=== PATIENT | female | born 1930 | race Caucasian/White ===

== ENCOUNTER 2016-09-12 09:26 | Emergency (ER) | payer OTHER, MEDICARE ==
[~2016-09-12] VITALS: Ht 162.6 cm; Wt 63.5 kg
[~2016-09-12 09:26] MED LIST: ANASTROZOLE1 M1 PO; FLOMAX0.4 M1 PO; IBUPROFEN600 M1 PO; PERCOCET 5-3251 EACH PO; ZOFRAN ODT4 MG SL
[2016-09-12 09:41] VITALS: BP 155/88
--- NOTE | 2016-09-12 10:17 | ED MVC/FALL/TRAUMA COMPLAINT ---
History of Present Illness General Chief Complaint: Fall Stated Complaint: NECK PAIN S/P FALL 2 DAYS AGO, +HEADSTRIKE, -LOC Source: patient Exam Limitations: no limitations Vital Signs & Intake/Output Vital Signs & Intake/Output Vital Signs Date Time Temp Pulse Resp B/P B/P Pulse O2 O2 Flow FiO2 Mean Ox Delivery Rate 09/12 0941 98.2 66 16 155/88 99 Room Air Allergies Coded Allergies: poison chuy extract (Intermediate, RASH 01/05/16) Reconcile Medications Anastrozole 1 MG TABLET 1 MG PO DAILY BREAST CANCER (Reported) Ibuprofen 600 MG TABLET 1 TAB PO Q6 PRN PAIN with food Oxycodone HCl/Acetaminophen (Percocet 5-325 MG Tablet) 1 EACH TABLET 1 TAB PO Q4-6 PRN BREAKTHROUGH PAIN Tamsulosin HCl (Flomax) 0.4 MG CAP.ER.24H 1 CAP PO DAILY KIDNEY STONE Tylenol With Codeine (Tylenol With Codeine #3 Tablet) 300 MG-30 MG TABLET 1 TAB PO BIDP PRN PAIN Triage Note: PT TO ED STATING SHE WAS WEEDING HER GARDEN 2 DAYS AGO AND FELL OFF A CRATE AND HIT HER HEAD ON CONCRETE, DENIES ANY LOC. DENIES ANY BLOOD THINNERS. DENIES ANY VISUAL CHANGES SINCE INCIDENT, DENIES ANY HEADACHE. IS C/O PAIN TO HER NECK ON THE LEFT SIDE, USED A PAIN PATCH YESTERDAY WITH RELIEF. Triage Nurses Notes Reviewed? yes Onset: Gradual Duration: getting worse Timing: recent history Severity: severe Severity Numbers: 7 Method of Injury: direct blow, fall Loss of Consciousness: no loss of consciousness HPI: Patient is an 86-year-old female who presents emergency room with for concerns that 2 days ago while patient was trying to pull weeds in her garden while sitting on a stool that we had broke patient subsequently fell to the right side of her body and struck the right side of her head and face to the cement. Patient denies any blood thinner and denies any loss of consciousness. Patient does admit to bruising to the head and eye region however denies any pain. Patient states that that evening she developed generalized neck pain which she took yesterday Aleve with relief however when patient woke up today the neck stiffness had significantly worsened. Patient denies any headache blurred vision upper extremity paresthesia weakness or pain denies any nausea or vomiting. Patient did not take any medications prior to arrival (CRESCENCIO DE LA TORRE) Past History Travel History Traveled to [place] past 21 day No Medical History Any Pertinent Medical History? 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 No (CRESCENCIO DE LA TORRE) Review of Systems Review of Systems Constitutional: Reports: no symptoms. Eyes: Reports: no symptoms. Ears, Nose, Throat, Mouth: Reports: no symptoms. Respiratory: Reports: no symptoms. Cardiovascular: Reports: no symptoms. Gastrointestinal/Abdominal: Reports: no symptoms. Genitourinary: Reports: no symptoms. Musculoskeletal: Reports: see HPI, muscle pain, muscle stiffness, neck pain. Skin: Reports: see HPI. Neurological/Psychological: Reports: no symptoms. All Other Systems: Reviewed and Negative (CRESCENCIO DE LA TORRE) Physical Exam Physical Exam General Appearance: no apparent distress, alert, comfortable Skin: intact Comments: Well-developed well-nourished person in no acute distress HEENT: Normal EENT exam, extraocular motion intact, no nystagmus. Pupils equally round and reactive to light and accommodation. Nose is atraumatic. External auditory canal and Tympanic membranes clear. Pharynx normal. No swelling or edema. Neck: Normal inspection left lateral paracervical muscular point tenderness noted mild central spinous tenderness noted, decreased active range of motion noted Back: Nontender, no CVA tenderness. No central spinous tenderness Cardiovascular: Regular rate and rhythms no murmurs rubs or gallops, normal JVP Respiratory: Chest nontender. No respiratory distress.breath sounds clear to auscultation bilaterally Abdomen: Soft, nontender nondistended, no appreciable organomegaly. Normal bowel sounds. No ascites Extremity: No edema, no calf tenderness to palpation, normal and equal pulses. Bilateral upper extremity myotomes dermatomes DTRs intact Neuro: Alert oriented x3, motor sensory normal, cranial nerves II through XII grossly intact. Skin: No appreciable rash on exposed skin, skin is warm and dry. Psych: Mood and affect is normal, memory and judgment is normal. Diagram Head: 1) ecchymosis noted 2) Ecchymosis noted no step-off deformity nontender Core Measures ACS in differential dx? No Severe Sepsis Present: No Septic Shock Present: No (ZOE OLEARY,CRESCENCIO) Progress Differential Diagnosis: aoritic dissection, abd injury, C/T/L spine injury, ext injury, ICH, pelvis injury, pnemothorax, spinal cord injury Plan of Care: Orders Procedure Date/time Status CT ORBITS WO IV CONTRAST 09/[address] NECK WO IV CONTRAST 09/[address] HEAD WO IV CONTRAST 09/12 1017 Active Patient currently resting comfortably no apparent distress CT scans of patient's point tenderness in trauma was unremarkable for acute process. I reviewed the scans with patient. Patient was strongly advised to follow-up with discharge instructions the plan and they will comply. Normal steady gait on discharge Discussed disposition and plan with Dr. Hugo who agrees (ZOE OLEARY,CRESCENCIO) Diagnostic Imaging: Viewed by Me: CT Scan. Radiology Impression: no acute abnormality Comments: PATIENT: THIAGO HARRELL PRESENT AGE: 86 PATIENT ACCOUNT NO: [id number] : 31 LOCATION: [facility] ORDERING PHYSICIAN: CRESCENCIO OLEARY SERVICE DATE: 09/12/16 EXAM TYPE: CAT - CT CERV SPINE WO IV CONTRAST; CT HEAD WO IV CONTRAST; CT ORBITS WO IV CONTRAST EXAMINATION: CT HEAD WITHOUT CONTRAST. CT ORBITS WITHOUT CONTRAST. CT CERVICAL SPINE WITHOUT CONTRAST. CLINICAL INFORMATION: Status post fall. Right-sided head and right orbit trauma. Neck pain. COMPARISON: None TECHNIQUE: Multidetector volumetric CT imaging of the head, orbits and cervical spine are acquired without intravenous contrast administration. Postprocessing is performed at a dedicated workstation. Multiplanar reformatted images are submitted. DLP: 1051.64 mGy-cm. FINDINGS: CT HEAD : There is no evidence of acute intracranial hemorrhage, midline shift or mass effect. Etienne to white matter differentiation is well preserved. No acute territorial infarction. Bilateral periventricular white matter patchy low-attenuation changes are noted reflecting sequela of chronic microangiopathy. No abnormal extra-axial fluid collection. There is mild global volume loss. The ventricles and sulci are normal in size for patient's age. The osseous calvarium is intact. An ill-defined focus of sclerosis measuring approximately 1.5 cm in transverse dimension is noted in the right anterior frontal calvarium in the parasagittal location (series 4 image 15), suspicious for metastatic lesion in this patient with personal history of breast cancer. The visualized paranasal sinuses and mastoid air cells are well-aerated except for opacification of few of the right ethmoid air cells. Minimal calvarial soft tissue swelling is noted over the right lateral frontal and temporal region and right anterolateral periorbital region. CT ORBIT: There is no evidence of fracture of the orbital corona. The globes are intact. Patient is status post bilateral lens extraction. The retrobulbar fat, optic nerves, an extraocular muscles appear unremarkable. CT cervical spine: The vertebral body heights are maintained. There is minimal anterior subluxation of C4 over C5. There is moderate to severe narrowing of the C5-C6 and C6-C7 disc spaces. The posterior elements are intact and in normal alignment. No evidence of tight central canal or neural foraminal stenosis. Atlantoaxial and atlantooccipital alignments are normal. Degenerative changes are noted at the atlantoaxial articulation. Facet arthropathy is noted on the left, at C4-C5. There is no evidence of prevertebral soft tissue swelling. Paraspinous soft tissues are unremarkable. The thyroid gland is unremarkable. 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 IMPRESSION: 1. No evidence of acute intracranial abnormality. Specifically there is no evidence of acute intracranial hemorrhage or acute territorial infarction. 2. 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 3. Very mild calvarial soft tissue swelling over the right frontotemporal region and periorbital region. 4. No evidence of orbital fracture. The globes are intact. 5. A stable ill-defined sclerotic focus in the right anterior frontal calvarium in the parasagittal location is suspicious for metastatic lesion. 6. No evidence of acute fracture or traumatic subluxation in the cervical spine. DICTATED BY: OK CARRANZA,STACY DATE/TIME DICTATED:09/12/161049 [employer] CRAFTS TEACHER:TERESA DATE/TIME TRANSCRIBED:09/12/161049 (CRESCENCIO DE LA TORRE) Departure Departure Disposition: HOME OR SELF CARE Condition: Stable Clinical Impression Primary Impression: Neck strain Secondary Impressions: Contusion of face, Fall, Minor head injury Referrals: PATIENT HAS NO PRIMARY CARE DR (PCP/Family) Additional Instructions: As discussed begin icing the area directly 20 minutes every 2 hours. Continue [id number] Aleve as directed for pain and inflammation and begin the prescription of Tylenol with codeine for breakthrough pain relief. Please follow up and establish a primary care doctor with [facility] practice this week for further evaluation treatment. If symptoms worsen return to emergency room. Patient is waiting at [facility] pharmacy Departure Forms: Customer Survey General Discharge Information Prescriptions: Current Visit Scripts Tylenol With Codeine (Tylenol With Codeine #3 Tablet) 1 TAB PO BIDP PRN PAIN #10 TAB (CRESCENCIO DE LA TORRE) PA/HIGH SPEED WARPER TENDER Co-Sign Statement Statement: ED Attending supervision documentation- [X] I saw and evaluated the patient. I have also reviewed all the pertinent lab results and diagnostic results. I agree with the findings and the plan of care as documented in the PA's/HIGH SPEED WARPER TENDER's documentation. [X] I have reviewed the ED Record and agree with the PA's/HIGH SPEED WARPER TENDER's documentation. [] Additions or exceptions (if any) to the PAs/HIGH SPEED WARPER TENDER's note and plan are summarized below: [] (ALEXIA CARRANZA,GABRIEL Bello)
--- NOTE | 2016-09-12 11:25 | CT SCAN REPORT ---
EXAMINATION: CT HEAD WITHOUT CONTRAST. CT ORBITS WITHOUT CONTRAST. CT CERVICAL SPINE WITHOUT CONTRAST. CLINICAL INFORMATION: Status post fall. Right-sided head and right orbit trauma. Neck pain. COMPARISON: None TECHNIQUE: Multidetector volumetric CT imaging of the head, orbits and cervical spine are acquired without intravenous contrast administration. Postprocessing is performed at a dedicated workstation. Multiplanar reformatted images are submitted. DLP: 1051.64 mGy-cm. FINDINGS: CT HEAD : There is no evidence of acute intracranial hemorrhage, midline shift or mass effect. Etienne to white matter differentiation is well preserved. No acute territorial infarction. Bilateral periventricular white matter patchy low-attenuation changes are noted reflecting sequela of chronic microangiopathy. No abnormal extra-axial fluid collection. There is mild global volume loss. The ventricles and sulci are normal in size for patient's age. The osseous calvarium is intact. An ill-defined focus of sclerosis measuring approximately 1.5 cm in transverse dimension is noted in the right anterior frontal calvarium in the parasagittal location (series 4 image 15), suspicious for metastatic lesion in this patient with personal history of breast cancer. The visualized paranasal sinuses and mastoid air cells are well-aerated except for opacification of few of the right ethmoid air cells. Minimal calvarial soft tissue swelling is noted over the right lateral frontal and temporal region and right anterolateral periorbital region. CT ORBIT: There is no evidence of fracture of the orbital corona. The globes are intact. Patient is status post bilateral lens extraction. The retrobulbar fat, optic nerves, an extraocular muscles appear unremarkable. CT cervical spine: The vertebral body heights are maintained. There is minimal anterior subluxation of C4 over C5. There is moderate to severe narrowing of the C5-C6 and C6-C7 disc spaces. The posterior elements are intact and in normal alignment. No evidence of tight central canal or neural foraminal stenosis. Atlantoaxial and atlantooccipital alignments are normal. Degenerative changes are noted at the atlantoaxial articulation. Facet arthropathy is noted on the left, at C4-C5. There is no evidence of prevertebral soft tissue swelling. Paraspinous soft tissues are unremarkable. The thyroid gland is unremarkable. 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 IMPRESSION: 1. No evidence of acute intracranial abnormality. Specifically there is no evidence of acute intracranial hemorrhage or acute territorial infarction. 2. 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 3. Very mild calvarial soft tissue swelling over the right frontotemporal region and periorbital region. 4. No evidence of orbital fracture. The globes are intact. 5. A stable ill-defined sclerotic focus in the right anterior frontal calvarium in the parasagittal location is suspicious for metastatic lesion. 6. No evidence of acute fracture or traumatic subluxation in the cervical spine.
[2016-09-12] MEDS ORDERED: TYLENOL WITH C1 EACH PO (11:40)
== END 2016-09-12 11:46 ==
LOC: ERH 09:26
DX: S16.1XXA Strain of muscle, fascia and tendon at neck level, initial encounter (principal); S00.83XA Contusion of other part of head, initial encounter; S09.90XA Unspecified injury of head, initial encounter; W17.89XA Other fall from one level to another, initial encounter; Y93.H2 Activity, gardening and landscaping; Y92.009 Unspecified place in unspecified non-institutional (private) residence as the place of occurrence of the external cause